=== PATIENT | female | born 2000 | race Caucasian/White ===

== ENCOUNTER 2020-09-14 13:47 | Emergency (ER) | payer OTHER ==
[2020-09-14 13:53] VITALS: TEMP 98.8; BMI 33.0
[2020-09-14 15:07] VITALS: BP 132/75; PULSE 89
== END 2020-09-14 15:05 | disposition home or self-care (01) ==
LOC: JERFT 13:47
DX: S46.912A Strain of unspecified muscle, fascia and tendon at shoulder and upper arm level, left arm, initial encounter (principal); X50.9XXA Other and unspecified overexertion or strenuous movements or postures, initial encounter
CPT/HCPCS: 73030-TC-LT-FY; 99283-25